=== PATIENT | female | born 1985 | race Caucasian/White ===

== ENCOUNTER 2016-10-11 14:40 | Emergency (ER) | payer OTHER ==
[2016-10-11 15:30] LABS: ABSOLUTE NEUTROPHIL COUNT 6.5 K/mm3 (1.8-7.7); BASO # 0.1 K/mm3 (0.0-0.2); BASO % 0.6 % (0.2-1.0); EOS # 0.1 (0.0-0.5); EOS % 1.1 % (0.9-2.9); HEMATOCRIT 45.1 % (37.0-47.0); HEMOGLOBIN 15.3 gm/l (12.0-16.0); IMM NEUT # 0.1 K/mm3 (0-0.2); IMM NEUT% 0.5 % (0-1); LYMPH # 2.7 (1.0-4.8); LYMPH % 26.2 % (15-45); MEAN CELL VOLUME 89.3 fl (81.0-99.0); MEAN CORPUSCULAR HEMOGLOBIN 30.3 pg (27.0-31.0); MEAN CORPUSCULAR HGB CONC 33.9 g/dl (33.0-37.0); MEAN PLATELET VOLUME 12.1 fl (7.4-10.4); MONO # 0.9 (0.0-0.8); MONO % 8.6 % (4-12); PLATELET COUNT 240 K/mm3 (130-400); RED CELL DISTRIBUTION WIDTH 12.2 % (11.5-14.5); SPECIFIC GRAVITY 1.015 (1.001-1.030); URINE BILIRUBIN NEGATIVE (NEGATIVE); URINE BLOOD 4+ (NEGATIVE); URINE GLUCOSE (UA) NEGATIVE (NEGATIVE); URINE LEUKOCYTE ESTERASE NEGATIVE (NEGATIVE); URINE NITRITE NEGATIVE (NEGATIVE); URINE PROTEIN NEGATIVE (NEGATIVE); URINE UROBILINOGEN NORMAL (0-1 mg/dl)
[2016-10-11 15:33] LABS: URINE APPEARANCE CLEAR; URINE COLOR YELLOW
[2016-10-11 15:44] LABS: URINE BACTERIA FEW; URINE WBC NEG /hpf
[2016-10-11 15:50] LABS: ALB/GLOB RATIO 1.2 (>1.0); ALBUMIN 3.9 gm/dL (3.5-5.7); CALCIUM 9.2 mg/dL (8.6-10.3)
[2016-10-11] MEDS ORDERED: SODIUM CHLORIDE 0.9% 1,000 ML ONE (16:38)
--- NOTE | 2016-10-11 18:40 | US ---
Name: ELIECER KAT Exam: Obstetrical ultrasound Comparison: None Clinical history: Vaginal bleeding Findings: Transabdominal and endovaginal imaging of the pelvis was performed. Visualized bladder is normal. Uterus is normal size. There are 2 separate intrauterine fluid collections. One has a single living intrauterine gestation of 5 weeks 5 days with a heart rate of 176 bpm. Estimated date of delivery is 06/08/2017. Yolk sac and pole are both identified. There is no perigestational hemorrhage in this region. Placenta is not yet identified. Gestational fluid volume is grossly normal. To the right, there is a second fluid collection with some internal debris. Small gestational sac is identified. There is no pole. There is no cervical cardiac activity. Perigestational hemorrhage is not seen on this exam. Right ovary is 3.0 x 1.9 x 1.7 cm and left ovary measures 3.8 x 2.0 x 2.0 cm. There is a 9 mm right corpus luteum cyst. There is blood flow in both ovaries. There is no free fluid. Impression: 1. Twin intrauterine gestation. Fetus a is at 5 weeks 5 days and there is an estimated date of delivery of 06/08/2017. Heart rate is 176 bpm. Fetus B is to maternal right and unfortunately, there are no heart tones. Findings are consistent with a twin demise. 2. No free fluid 3. Normal appearance of the ovaries
== END 2016-10-11 19:16 | disposition home or self-care (01) ==
LOC: ED 14:40
DX: O30.041 Twin pregnancy, dichorionic/diamniotic, first trimester (principal); O31.11X2 Continuing pregnancy after spontaneous abortion of one fetus or more, first trimester, fetus 2; Z3A.01 Less than 8 weeks gestation of pregnancy